=== PATIENT | female | born 1985 | race African-American/Black ===

== ENCOUNTER → 2016-11-19 | Outpatient (CLI) | payer BC, OTHER ==
--- NOTE | ~2016-11-19 | US128 ---
[id number] [address] [facility] [place], [place] [address] [id number] O MR#: [id number] Acc #: [id number] NAME: BERTHA BERTRAND : 1985 SEX: F STUDY DATE/TIME: 11/19/2016 14:41 UNIT: [facility] ROOM: STUDY DESCRIPTION: Thyroid Attending Physician: Ceci Stephenson A.P.R.N. Referring Physician: Ceci Stephenson A.P.R.N. Ordering Physician: Ceci Stephenson A.P.R.N. Primary Care Physician: Ceci Stephenson A.P.R.N. MEDICAL IMAGING REPORT This report is preliminary unless electronic signature is present EXAM Thyroid ultrasound, 11/19/16. HISTORY Nontoxic diffuse thyroid goiter. Enlarged thyroid on physical examination October 2016. FINDINGS The right thyroid lobe measured 1.7 cm x 4.6 cm x 1.4 cm while the left lobe measured 1.7 cm x 4.5 cm x 1.2 cm. The isthmus measured 3 mm in the AP direction. There are 2 subcentimeter cysts within the right thyroid lobe, and a solitary subcentimeter cyst in the left thyroid lobe. No solid mass lesions are identified. There are no masses extrinsic to the thyroid. Normal blood flow is seen throughout both thyroid lobes. IMPRESSION Subcentimeter cysts involving both thyroid lobes. Otherwise, negative thyroid ultrasound. Dictated by... Jason Harp M.D. THIS IS AN ELECTRONICALLY VERIFIED REPORT Jason Harp M.D. at 11/22/2016 8:25 AM MAYRA/mallory TD: 11/19/2016 22:40 JOB #: [id number] MEDICAL IMAGING REPORT Page 1 of 1 COPY
== END | disposition home or self-care (01) ==
LOC: CWCC 11-12 14:30
DX: E04.0 Nontoxic diffuse goiter (principal); E04.1 Nontoxic single thyroid nodule; Z72.0 Tobacco use; Z79.899 Other long term (current) drug therapy; Z79.1 Long term (current) use of non-steroidal anti-inflammatories (NSAID)
CPT/HCPCS: 76536